=== PATIENT | male | born 1980 | race Hispanic/Latino ===

== ENCOUNTER 2017-04-08 11:03 | Inpatient (IN) | payer MEDICAID, OTHER ==
[2017-04-08 11:16] VITALS: O2SAT 96
[2017-04-08 11:40] LABS: BASO % 0.5 % (0.0-2.0); EOS # 0.2 K/uL (0.0-0.7); EOS % 2.1 % (0.0-4.0); HEMATOCRIT 39.7 % (35.0-51.0); LYMPH # 2.2 K/uL (1.0-4.3); LYMPH % 28.6 % (20.0-40.0); MEAN CELL VOLUME 86.7 fL (80.0-94.0); MEAN CORPUSCULAR HEMOGLOBIN 30.4 pg (27.0-31.0); MEAN CORPUSCULAR HGB CONC 35.1 g/dL (33.0-37.0); MEAN PLATELET VOLUME 7.5 fL (7.2-11.7); MONO # 0.3 K/uL (0.0-0.8); MONO % 3.8 % (0.0-10.0); RED CELL DISTRIBUTION WIDTH 13.5 % (11.5-14.5); WHITE BLOOD COUNT 7.8 K/uL (4.8-10.8)
[2017-04-08 11:45] LABS: URINE BACTERIA RARE (<OCC); URINE BILIRUBIN NEGATIVE (NEGATIVE); URINE BLOOD NEGATIVE (NEGATIVE); URINE COLOR Yellow (YELLOW); URINE GLUCOSE (UA) NORMAL (Normal); URINE KETONE NEGATIVE (NEGATIVE); URINE LEUKOCYTE ESTERASE NEG Leu/uL (Negative); URINE PROTEIN NEGATIVE (NEGATIVE); URINE UROBILINOGEN NORMAL mg/dL (0.2-1.0); WBC URINE < 1 /hpf (0-5)
[2017-04-08 11:51] LABS: CHLORIDE 101 mmol/L (98-107)
[2017-04-08 11:52] LABS: POTASSIUM 4.1 mmol/L (3.6-5.2); SODIUM 140 mmol/L (132-148)
[2017-04-08 11:54] LABS: AST/SGOT 86 U/L (17-59); BILIRUBIN,TOTAL 0.5 mg/dL (0.2-1.3); CARBON DIOXIDE 27 mmol/L (22-30); GFR AFRICAN-AMERICAN > 60
[2017-04-08 11:55] LABS: ALB/GLOB RATIO 1.3 (1.0-2.1); ALCOHOL SERUM < 10 mg/dl (0-10); ALKALINE PHOSPHATASE 71 U/L (38-126); ALT/SGPT 271 U/L (21-72); BLOOD UREA NITROGEN 10 mg/dL (9-20); CALCIUM 9.1 mg/dl (8.6-10.4); GLUCOSE,RANDOM 96 mg/dL (75-110); TOTAL PROTEIN 6.9 g/dL (6.3-8.3)
--- NOTE | 2017-04-08 11:56 | C.PDOC ---
History Of Present Illness 37 y/o male, known history of depression and drug abuse, presents to emergency department with complaint of suicidal thoughts intermittent for the past few weeks. Patient was seen at this ER 1 week ago, admitted to psych floor, and discharged to [facility]. Patient states he the medications he received there have not been helping. Patient reports feeling anxious but denies any suicidal plan. Denies any other active physical complaints. Time Seen by Provider: 04/08/17 11:17 Chief Complaint (Nursing): Psychiatric Evaluation History Per: Patient History/Exam Limitations: no limitations Onset/Duration Of Symptoms: Days, Intermittent Episodes Current Symptoms Are (Timing): Still Present Associated Symptoms: Depression Recent travel outside of the [place]: No Past Medical History Reviewed: Historical Data, Nursing Documentation, Vital Signs Vital Signs: Last Vital Signs Temp 97.6 F 04/08/17 11:14 Pulse 89 04/08/17 11:14 Resp 16 04/08/17 11:14 BP 157/105 H 04/08/17 11:14 Pulse Ox 96 04/08/17 11:55 - Medical History PMH: Anxiety, Bipolar Disorder, Depression, HTN, Schizophrenia - [facility] GROUP PSYCHOTHERAPY (03/28/17) INDIVIDUAL PSYCHOTHERAPY, SUPPORTIVE (03/28/17) MEDICATION MANAGEMENT (03/28/17) PHARMACOTHERAPY FOR SUBSTANCE ABUSE, NICOTINE REPLACE (03/28/17) Family History: States: Unknown Family Hx - Social History Hx Alcohol Use: No Hx Substance Use: Yes - Immunization History Hx Tetanus Toxoid Vaccination: No Hx Influenza Vaccination: No Hx Pneumococcal Vaccination: No Review Of Systems Except As Marked, All Systems Reviewed And Found Negative. Constitutional: Negative for: Fever, Chills Cardiovascular: Negative for: Chest Pain, Palpitations Respiratory: Negative for: Cough, Shortness of Breath Gastrointestinal: Negative for: Nausea, Vomiting Skin: Negative for: Rash Neurological: Negative for: Headache, Dizziness Psych: Positive for: Anxiety, Depression, Suicidal ideation Physical Exam - Physical Exam Appears: Non-toxic, No Acute Distress Skin: Normal Color, Warm, Dry Head: Atraumatic, Normacephalic Eye(s): bilateral: Normal Inspection, PERRL, EOMI Ear(s): Bilateral: Normal Oral Mucosa: Moist Lips: Normal Appearing Neck: Supple Chest: Symmetrical Cardiovascular: Rhythm Regular Respiratory: Normal Breath Sounds, No Rales, No Rhonchi, No Wheezing Gastrointestinal/Abdominal: Soft, No Tenderness, No Guarding, No Rebound Back: Normal Inspection Extremity: Normal ROM, Capillary Refill (< 2 sec. ) Neurological/Psych: Oriented x3, Normal Speech, Normal Cognition ED Course And Treatment - Laboratory Results Result Diagrams: 04/08/17 11:36 04/08/17 11:36 Lab Interpretation: No Acute Changes O2 Sat by Pulse Oximetry: 96 (ra) Pulse Ox Interpretation: Normal Progress Note: Initially on presentation, pt appears slightly anxious, racing in room. Ativan given. On re-eval, pt is afebrile, hemodynamicaly stable. Pt appears comfortable now, cooperative. neck: Supple,. Lungs: CTA B/L, BS equal B/L. Abd: benign. Neuorlogicaly intact. Blood work review and appears normal. Pt is medically cleared for psych eval. After pt was evaluated by Crisis and case discussed with DR. Geiger admission recommend with Dx: Bipolar, suicidal. Disposition - Disposition Disposition: HOSPITALIZED Disposition Time: 14:10 Condition: STABLE Forms: [facility] (Eth[place]ian) - Clinical Impression Clinical Impression: Bipolar 1 disorder, depressed, severe - PA / [employer] / Resident Statement MD/DO has reviewed & agrees with the documentation as recorded. - Scribe Statement The provider has reviewed the documentation as recorded by the Cheryleibderian Tena All medical record entries made by the Elham were at my direction and personally dictated by me. I have reviewed the chart and agree that the record accurately reflects my personal performance of the history, physical exam, medical decision making, and the department course for this patient. I have also personally directed, reviewed, and agree with the discharge instructions and disposition.
--- NOTE | 2017-04-08 16:53 | PCM.BM ---
<Brandy Fortune M - Last Filed: 04/08/17 16:50> Treatment Plan Problems - Problems identified on initial assessmt Depression Date Initiated: 04/08/17 Time Initiated: 16:51 Assessment reference: NA Status: Active Suicidal Ideation Date Initiated: 04/08/17 Time Initiated: 16:52 Assessment reference: NA Status: Active Treatment assets and liabiliti Patient Assests: adapts well, cooperative, motivated, ADL independent, physically healthy, good support system, negotiates basic needs, cognitively intact Patient Liabilities: live alone, financial problems - Milieu Protocol Maintain good personal hygiene: daily Encourage regular showers, daily Remind patient to perform daily oral care, other Assist patient to perform ADL's (self) Maintain personal safety: every shift Educate patient to report safety concerns to staff, every shift Monitor environment for contraband/sharps Medication safety: Monitor for expected outcome, potential side effects: every shift, Assess barriers to learning: every shift, Assess readiness for medication education: every shift <Kandy Royal - Last Filed: 04/09/17 11:19> Family Contact Family involvement: Family/SO is involved Family contact: Patient agrees to contact Family contact name: Anna Cortez- - Goals for Treatment Patient goals for treatment: "I want to go to rehab." Discharge/Continuing Care - Education Needs Education Needs: Patient Medication, Patient Coping Skills, Patient Placement options, Patient Community resources - Discharge Discharge Criteria: Tolerates medication w/o severe side effects, Free of Suicidal thoughts, Reduction of target symptoms Discharge to:: Substance Abuse Rehab - Treatment Team Participation Discussed with Family/SO: No Was Patient/Family/SO present at Treatment Team Meeting: Yes <Carlos Geiger M - Last Filed: 04/09/17 16:24> - Diagnosis (1) Bipolar 1 disorder, mixed, severe Status: Acute Interventions: Assess/had just medications daily and/or as needed See patient on an individual basis 7x/week to assess status of depression Discussed risks, benefits, side effects and alternatives of medications 04/09/17 16:22 (2) Opiate dependence Status: Acute Interventions: Assess 7x/week regarding severity of withdrawal symptoms Educated regarding risks, benefits, side effects and alternatives of medications Used motivational interviewing for abstinence Use CBT for relapse prevention Medication management for withdrawal symptoms Encourage medication assisted treatment 04/09/17 16:24
--- NOTE | 2017-04-09 16:15 | PCM.PSYCH ---
Initial Psychiatric Evaluation - Initial Psychiatric Evaluation Type of Admission: Voluntary Legal Status: Capacity Chief Complaint (in patient's own words): I'm depressed and I'm suicidal. History of Present Illness and Precipitating Events: Patient is a 37 years old, single, unemployed, male with history of bipolar disorder since his childhood and opiate use disorder, currently in treatment at [facility] for more than 2 months for his opiate use. Patient was admitted at [facility] in close discharged AMA. During his last admission, patient was getting haloperidol 10 mg twice a day, Seroquel 200 mg 3 times a day, Lexapro 5 mg. Patient was constantly asking for Klonopin. Education provided to patient but patient left the unit AGAINST MEDICAL ADVICE. Patient reported that he was not getting his usual doses of medications at [facility], started feeling depressed and suicidal ideations with plan to cut his wrist.according to initial evaluation , patient was discharged from [facility]. Patient reported that he was depressed with decreased sleep and feeling tired, no change in appetite and no change in weight. Denied any suicidal ideations or homicidal ideations at the time of evaluation but reported having suicidal ideations with plan before admission. During his previous admission patient denied any suicidal attempts but today patient reported history of 4 previous suicidal attempts . Details unavailable. Also reported hearing voices . Could not elaborate the content of auditory hallucinations. Reported 4 previous admissions for psych reasons. Patient was using heroin since age of 15 years. Reported currently he was using 15 bags daily, IV, last use was 2 months ago. Denied using any other drugs including cocaine, cannabis and alcohol. Also smokes one pack of cigarettes daily and is requesting for nicotine patch. Patient was born in [place], has 11th grade of education, not working since October 2016. 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 Has one ,21 years old daughter. His height is 5 feet 9 inches and weight is 135 pounds. Current Medications: Active Medications Generic Name Dose Route Start Last Admin Trade Name Freq PRN Reason Stop Dose Admin Benztropine Mesylate 1 mg 04/08/17 18:00 04/09/17 09:28 Cogentin PO 1 mg BID DANIEL Administration Escitalopram Oxalate 10 mg 04/09/17 10:00 04/09/17 09:28 Lexapro PO 10 mg DAILY DANIEL Administration Gabapentin 300 mg 04/08/17 18:00 04/09/17 13:19 Neurontin PO 300 mg TID DANIEL Administration Haloperidol 5 mg 04/08/17 18:00 04/09/17 09:28 Haldol PO 5 mg BID DANIEL Administration Haloperidol 5 mg 04/08/17 17:30 04/09/17 14:31 Haldol PO 5 mg Q1H PRN Administration agitation max 4x/24h Hydroxyzine HCl 50 mg 04/08/17 17:26 04/09/17 14:31 Atarax PO 50 mg Q6H PRN Administration Anxiety Ibuprofen 600 mg 04/08/17 17:26 Motrin Tab PO Q6H PRN Pain, moderate (4-7) Nicotine 1 patch 04/09/17 11:30 04/09/17 12:18 Nicoderm Cq TD 1 patch DAILY DANIEL Administration Quetiapine Fumarate 100 mg 04/08/17 18:00 04/09/17 09:28 Seroquel PO 100 mg BID DANIEL Administration Trazodone HCl 100 mg 04/08/17 17:26 04/08/17 21:16 Desyrel PO 100 mg HS PRN Administration Insomnia Past Psychiatric History - Past Psychiatric History Previous Treatment History: Inpatient At [facility] hospital: [facility] Date: 03/28/17 History of Abuse: None reported History of ETOH/Drug Use: See HPI History of Family Illness: None reported Pertinent Medical Hx (Current Medical&Sleep Prob, Allergies): Allergies Allergy/AdvReac Type Severity Reaction Status Date / Time No Known Allergies Allergy Verified 04/08/17 11:16 Gabapentin [Neurontin] 300 mg PO TID 03/28/17 Haloperidol [Haldol] 10 mg PO BID 03/28/17 QUEtiapine [SEROquel] 200 mg PO TID 03/28/17 Benztropine [Benztropine Mesylate] 2 mg PO QPM 04/08/17 Review of Systems - Psychiatric Psychiatric: Depression Mental Status Examination - Personal Presentation Personal Presentation: Looks stated age - Affect Affect: Depressed - Motor Activity Motor Activity: Calm - Reliability in Providing Information Reliability in Providing Information: Fair - Speech Speech: Organized - Mood Mood: Depressed - Formal Thought Process Formal Thought Process: No Impairment - Hallucinations/Delusions Hallucinations: Other (None reported) Delusions: Other - Obsessions/Compulsions Obsessions: None Compulsions: None - Cognitive Functions Orientation: Person, Place, Situation, Time Sensorium: Alert Attention/Concentration: Attentive Abstract Thinking: [place] Estimate of Intelligence: Average Judgement: Imparied, as evidence by: Lack of insight into illness Memory: Recent intact, as evidence by: Other, Remote intact, as evidenced by: Ability to recall historical events - Risk Risk: Diminished functioning - Strength & Assets Inventory Strength & Assets Inventory: Family support, Cooperative - Limitations Limitations: Other DSM 5 DX - DSM 5 DSM 5 Diagnosis: Bipolar 1 disorder mixed Opiate use disorder severe in controlled environment - Recommended/Plan of Treatment Treatment Recommendations and Plan of Treatment: Patient education Supportive therapy We will start Seroquel 200 mg twice a day, Haldol 5 mg twice a day and other when necessary medications. Projected ELOS: 8-10 days - Smoking Cessation Smoking Cessation Initiated: Yes
--- NOTE | 2017-04-10 14:31 | PCM.PYCHPN ---
Psychiatric Progress Note - Psychiatric Progress Note Patient seen today, length of contact: 15 minutes Patient Chief Complaint: I was unable to sleep. I was keep walking. I need more medication. Problems Identified/Issues Discussed: Patient seen. Chart reviewed. Case discussed with staff. Issues related to illness and treatment were discussed with the patient. Reported compliant with treatment with no adverse affects. Tolerating treatment very well. Demanding more medications. Reported not feeling better, with restlessness and racing thoughts. Patient was observed walking on the unit straight with small steps, appeared stiff. Discussed with the patient as this looks like EPS from Haldol. Also patient reported he was unable to sleep and he was pacing most of the time. Discussed with the patient about reduction of Haldol from 10 mg to 5 mg twice a day and if still symptoms persist Will discontinue Haldol. Will keep Seroquel. We will give him an extra dose of Cogentin 1 mg stat. Patient rejected the idea of reducing/discontinuing Haldol even after education. Also offered Depakote to reduce aggressiveness and racing thoughts. Patient refused at this time. At the time of evaluation, patient was awake alert oriented 3, had no delusions , no auditory or visual hallucinations, no suicidal ideations or homicidal ideations. Medical Problems: None reported Diagnostic Results: Reviewed DSM 5 Symptoms Update: Some improvement Medication Change: Yes (Dose of Haldol reduced to 5 mg twice a day) Medical Record Reviewed: Yes Mental Status Examination - Cognitive Function Orientation: Person, Place, Situation, Time Memory: Intact Attention: WNL Concentration: WNL Association: WN Fund of Knowledge: [facility] Decription of patient's judgement and insights: Fair - Mood Mood: Depressed - Affect Affect: Depressed - Speech Speech: Loud (At times) - Formal Thought Process Formal Thought Process: No Impairment Psychotic Thoughts and Behaviors: None - Suicidal Ideation Suicidal Ideation: No - Homicidal Ideation Homicidal Ideation: No Goal/Treatment Plan - Goal/Treatment Plan Need for Continued Stay: Remain at risks for inpatient hospitalization, Discharge may exacerbated symptoms, Severe functional impairment Progress Toward Problem(s) and Goals/Treatment Plan: Patient education Supportive therapy Will reduce the dose of Haldol to 5 mg twice a day from 10 mg twice a day. Continue rest of the treatment as before Estimated Date of D/C: 04/17/17 - Smoking Cessation Smoking Cessation Initiated: Yes
[2017-04-10 15:51] VITALS: RESP 18
[2017-04-11 08:04] VITALS: BP 114/79; PULSE 99; TEMP 98.1
[2017-04-11] MEDS ORDERED: Influenza Vaccine 60 mcg/0.5 mL SYR (4YR UP) IM ONE (10:00)
--- NOTE | 2017-04-11 18:30 | PCM.PYCHDC ---
Mental Status Examination - Mental Status Examination Orientation: Person, Place, Situation, Time Memory: Intact Mood: Neutral Affect: Other (Appropriate) Speech: Appropriate Attention: WNL Concentration: WNL Association: WNL Fund of Knowledge: WNL Formal Thought Process: No Impairment Description of patient's judgement and insight: Fair Psychotic Thoughts and Behaviors: None Suicidal Ideation: No Current Homicidal Ideation?: No Discharge Summary - Discharge Note Reason for Hospitalization: Bipolar I disorder Laboratory Data: Reviewed Consultations:: List each consultation separately and include: 1. Reason for request. 2. Findings. 3. Follow-up Summary of Hospital Course include:: 1. Description of specific treatment plan utilized for patients during their course of treatmen. 2. Summarize the time- course for resolution of acute symptoms and/or regressed behaviors. 3. Describe issues identified and worked on during hospitalization. 4. Describe medication utilized. 5. Describe medical problems identified and treated. 6. Reassessment of suicide risk Summary of Hospital Course: Patient is a 37 years old, single, unemployed, male with history of bipolar disorder since his childhood and opiate use disorder, currently in treatment at [facility] for more than 2 months for his opiate use. Patient was admitted at [facility] in [facility]. During his last admission, patient was getting haloperidol 10 mg twice a day, Seroquel 200 mg 3 times a day, Lexapro 5 mg. Patient was constantly asking for Klonopin. Education provided to patient but patient left the unit AGAINST MEDICAL ADVICE. Patient reported that he was not getting his usual doses of medications at [facility], started feeling depressed and suicidal ideations with plan to cut his wrist.according to initial evaluation , patient was discharged from [facility]. Patient reported that he was depressed with decreased sleep and feeling tired, no change in appetite and no change in weight. Denied any suicidal ideations or homicidal ideations at the time of evaluation but reported having suicidal ideations with plan before admission. During his previous admission patient denied any suicidal attempts but today patient reported history of 4 previous suicidal attempts . Details unavailable. Also reported hearing voices . Could not elaborate the content of auditory hallucinations. Reported 4 previous admissions for psych reasons. Patient was using heroin since age of 15 years. Reported currently he was using 15 bags daily, IV, last use was 2 months ago. Denied using any other drugs including cocaine, cannabis and alcohol. Also smokes one pack of cigarettes daily and is requesting for nicotine patch. 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 Has one ,21 years old daughter. His height is 5 feet 9 inches and weight is 135 pounds. During his stay on the unit patient was started on Seroquel, Haldol, Depakote and other when necessary medications. We Haldol and Seroquel patient developed some EPS symptoms. He developed stiffness. Patient was given Cogentin and the dose of Haldol was reduced and then discontinued. An dose of Seroquel was also reduced to 200 mg only at bedtime. Initially patient gave a lot of resistance for medication change. Later with education patient agreed. With above changes, patient was feeling better, no EPS, stable mood. Patient was accepted in [facility] today as per social science analyst on the unit. Patient was feeling better. Was discharged today. At the time of evaluation and discharge, patient was awake alert oriented 3, had no delusions, no auditory or visual hallucinations, no suicidal ideations or homicidal ideations. Patient was discharged in a stable condition. - Diagnosis (1) Bipolar 1 disorder, mixed, severe Status: Acute (2) Opiate dependence Status: Acute - Final Diagnosis (DSM 5) Condition upon Discharge: STABLE Disposition: HOME/ ROUTINE Follow-up Treatment Plan: We will go to [facility] Prescriptions/Medication Reconciliation: Benztropine [Cogentin] 1 mg PO BID #60 tab Escitalopram [Lexapro] 10 mg PO DAILY #30 tab Gabapentin [Neurontin] 300 mg PO TID #90 cap QUEtiapine [SEROquel] 200 mg PO BID #60 tab traZODone [Desyrel] 100 mg PO HS PRN #30 tab PRN Reason: Insomnia - Smoking Cessation Smoking Cessation Medication prescribed: No - Antipsychotic Medications Pt discharged on 2 or more routine antipsychotic medications: No
== END 2017-04-11 14:10 | disposition home or self-care (01) | DRG 430 ==
LOC: C.ER 11:03 → C.5E 14:15
DX: F31.63 Bipolar disorder, current episode mixed, severe, without psychotic features (principal); F11.20 Opioid dependence, uncomplicated; R45.851 Suicidal ideations; I10 Essential (primary) hypertension; F17.210 Nicotine dependence, cigarettes, uncomplicated; F41.9 Anxiety disorder, unspecified; Z79.899 Other long term (current) drug therapy; R53.83 Other fatigue